=== PATIENT | female | born 1990 | race American Indian/Alaskan Native ===

== ENCOUNTER 2020-10-21 23:36 | Emergency (ER) | payer MEDICAID ==
[2020-10-22] MEDS ORDERED: LIDOCAINE (1%) 10 MG/1 ML VIAL 20 ML MDV INFILTRATI ONE (00:05)
--- NOTE | 2020-10-22 00:55 | Emergency Department Report ---
ED General Adult HPI - General Stated complaint: PAINFUL KNOT IN MIDDLE OF CHEST Time Seen by Provider: 10/22/20 00:04 - History of Present Illness Initial comments: 30 yo AA F pt presents with complaints of painful swelling to left breast today and mid/upper abdominal pain x 2 days. She denies any past medical hx, N/V/D, hematochezia, hematemesism, melena, urinary symptoms, fever/chills/sweats, chest pain, or SOB. She rates her abdominal pain is 6/10 in severity and states it has been coming and going. Abdominal surgical history includes 3 C-sections per patient. She denies constipation or diarrhea. -: Sudden - Related Data Previous Rx's Medication Instructions Recorded Last Taken Type Acetaminophen/Codeine [Tylenol 1 tab PO Q8H PRN #6 tab 10/22/20 Unknown Rx /Codeine # 3 tab] Clindamycin [Clindamycin CAP] 300 mg PO Q6H 10 Days #40 capsule 10/22/20 Unknown Rx Ibuprofen [Motrin 800 MG tab] 800 mg PO Q8HR PRN #21 tablet 10/22/20 Unknown Rx Allergies Allergy/AdvReac Type Severity Reaction Status Date / Time No Known Allergies Allergy Unverified 10/22/20 00:49 ED Review of Systems ROS: Stated complaint: PAINFUL KNOT IN MIDDLE OF CHEST Other details as noted in HPI Constitutional: denies: chills, diaphoresis, fever, malaise, weakness Respiratory: denies: cough, shortness of breath Cardiovascular: denies: chest pain Gastrointestinal: abdominal pain. denies: nausea, vomiting, diarrhea, constipation, hematemesis, melena, hematochezia Genitourinary: denies: urgency, dysuria, frequency, hematuria, discharge, abnormal menses, dyspareunia Skin: denies: change in color Neurological: denies: headache, numbness, paresthesias Hematological/Lymphatic: denies: swollen glands ED Past Medical Hx - Past Medical History Previous Medical History?: Yes Hx Headaches / Migraines: Yes Hx Asthma: Yes - Surgical History Past Surgical History?: Yes Additional Surgical History: Csection x 3 - Medications Home Medications: Home Medications Medication Instructions Recorded Confirmed Last Taken Type Acetaminophen/Codeine [Tylenol 1 tab PO Q8H PRN #6 tab 10/22/20 Unknown Rx /Codeine # 3 tab] Clindamycin [Clindamycin CAP] 300 mg PO Q6H 10 Days #40 capsule 10/22/20 Unknown Rx Ibuprofen [Motrin 800 MG tab] 800 mg PO Q8HR PRN #21 tablet 10/22/20 Unknown Rx ED Physical Exam - General General appearance: alert, in no apparent distress - Head Head exam: Present: atraumatic, normocephalic - Eye Eye exam: Present: normal appearance. Absent: scleral icterus - Neck Neck exam: Present: normal inspection - Respiratory Respiratory exam: Present: normal lung sounds bilaterally. Absent: respiratory distress - Cardiovascular Cardiovascular Exam: Present: regular rate, normal rhythm - GI/Abdominal GI/Abdominal exam: Present: soft, tenderness (Mild periumbilical and), normal bowel sounds. Absent: distended, guarding, rebound, rigid - Extremities Exam Extremities exam: Present: full ROM - Back Exam Back exam: Present: normal inspection. Absent: CVA tenderness (R), CVA tenderness (L) - Neurological Exam Neurological exam: Present: alert, oriented X3, normal gait - Psychiatric Psychiatric exam: Present: normal affect, normal mood - Skin Skin exam: Present: warm, dry, intact, normal color. Absent: rash ED Course Vital Signs 10/21/20 23:54 Temperature 98.6 F Pulse Rate 99 H Respiratory 14 Rate Blood Pressure 118/77 O2 Sat by Pulse 96 Oximetry ED Medical Decision Making - Lab Data Result diagrams: 10/22/20 00:21 10/22/20 00:21 Lab Results 10/22/20 10/22/20 10/22/20 Range/Units 00: 00:21 00:21 WBC 7.0 (4.5-11.0) K/mm3 RBC 4.72 (3.65-5.03) M/mm3 Hgb 12.3 (10.1-14.3) gm/dl Hct 36.8 (30.3-42.9) % MCV 78 L (79-97) fl MCH 26 L (28-32) pg MCHC 34 (30-34) % RDW 15.7 H (13.2-15.2) % Plt Count 205 (140-440) K/mm3 Lymph % (Auto) 28.9 (13.4-35.0) % [place] % (Auto) 8.5 H (0.0-7.3) % Eos % (Auto) 0.0 (0.0-4.3) % Baso % (Auto) 0.1 (0.0-1.8) % Lymph # (Auto) 2.0 (1.2-5.4) K/mm3 [place] # (Auto) 0.6 (0.0-0.8) K/mm3 Eos # (Auto) 0.0 (0.0-0.4) K/mm3 Baso # (Auto) 0.0 (0.0-0.1) K/mm3 Seg Neutrophils % 62.5 (40.0-70.0) % Seg Neutrophils # 4.4 (1.8-7.7) K/mm3 Sodium 139 (137-145) mmol/L Potassium 4.4 (3.6-5.0) mmol/L Chloride 103.3 (98-107) mmol/L Carbon Dioxide 28 (22-30) mmol/L Anion Gap 12 mmol/L BUN 10 (7-17) mg/dL Creatinine 0.6 (0.6-1.2) mg/dL Estimated GFR > 60 ml/min BUN/Creatinine Ratio 17 % Glucose 97 (65-100) mg/dL Calcium 9.1 (8.4-10.2) mg/dL Total Bilirubin < 0.20 (0.1-1.2) mg/dL AST 13 (5-40) units/L ALT 8 (7-56) units/L Alkaline Phosphatase 82 (35-129) units/L Total Protein 7.2 (6.3-8.2) g/dL Albumin 3.8 L (3.9-5) g/dL Albumin/Globulin Ratio 1.1 % Lipase 24 (13-60) units/L HCG, Quant < 2 (0-4) mIU/mL Urine Color (Yellow) Urine Turbidity (Clear) Urine pH (5.0-7.0) Ur Specific [place] (1.003-1.030) Urine Protein (Negative) mg/dL Urine Glucose (UA) (Negative) mg/dL Urine Ketones (Negative) mg/dL Urine Blood (Negative) Urine Nitrite (Negative) Urine Bilirubin (Negative) Urine Urobilinogen (<2.0) mg/dL Ur Leukocyte Esterase (Negative) Urine WBC (Auto) (0.0-6.0) /HPF Urine RBC (Auto) (0.0-6.0) /HPF U Epithel Cells (Auto) (0-13.0) /HPF Urine Mucus /HPF 10/22/20 Range/Units 01:04 WBC (4.5-11.0) K/mm3 RBC (3.65-5.03) M/mm3 Hgb (10.1-14.3) gm/dl Hct (30.3-42.9) % MCV (79-97) fl MCH (28-32) pg MCHC (30-34) % RDW (13.2-15.2) % Plt Count (140-440) K/mm3 Lymph % (Auto) (13.4-35.0) % [place] % (Auto) (0.0-7.3) % Eos % (Auto) (0.0-4.3) % Baso % (Auto) (0.0-1.8) % Lymph # (Auto) (1.2-5.4) K/mm3 [place] # (Auto) (0.0-0.8) K/mm3 Eos # (Auto) (0.0-0.4) K/mm3 Baso # (Auto) (0.0-0.1) K/mm3 Seg Neutrophils % (40.0-70.0) % Seg Neutrophils # (1.8-7.7) K/mm3 Sodium (137-145) mmol/L Potassium (3.6-5.0) mmol/L Chloride (98-107) mmol/L Carbon Dioxide (22-30) mmol/L Anion Gap mmol/L BUN (7-17) mg/dL Creatinine (0.6-1.2) mg/dL Estimated GFR ml/min BUN/Creatinine Ratio % Glucose (65-100) mg/dL Calcium (8.4-10.2) mg/dL Total Bilirubin (0.1-1.2) mg/dL AST (5-40) units/L ALT (7-56) units/L Alkaline Phosphatase (35-129) units/L Total Protein (6.3-8.2) g/dL Albumin (3.9-5) g/dL Albumin/Globulin Ratio % Lipase (13-60) units/L HCG, Quant (0-4) mIU/mL Urine Color Yellow (Yellow) Urine Turbidity Clear (Clear) Urine pH 6.0 (5.0-7.0) Ur Specific [place] 1.020 (1.003-1.030) Urine Protein <15 mg/dl (Negative) mg/dL Urine Glucose (UA) Neg (Negative) mg/dL Urine Ketones Neg (Negative) mg/dL Urine Blood Neg (Negative) Urine Nitrite Neg (Negative) Urine Bilirubin Neg (Negative) Urine Urobilinogen < 2.0 (<2.0) mg/dL Ur Leukocyte Esterase Neg (Negative) Urine WBC (Auto) < 1.0 (0.0-6.0) /HPF Urine RBC (Auto) 1.0 (0.0-6.0) /HPF U Epithel Cells (Auto) 1.0 (0-13.0) /HPF Urine Mucus Few /HPF - Medical Decision Making 30 yo AA F pt presents with complaints of painful swelling to left breast today and mid/upper abdominal pain x 2 days. She denies any past medical hx, N/V/D, hematochezia, hematemesism, melena, urinary symptoms, fever/chills/sweats, chest pain, or SOB. She rates her abdominal pain is 6/10 in severity and states it has been coming and going. Abdominal surgical history includes 3 C-sections per patient. She denies constipation or diarrhea. Minimal periumbilical and epigastric pain noted on exam. No significant abnormalities noted on CBC, CMP, lipase, or UA. Attempted incision and drainage, however patient refused lidocaine and states that she no longer would like an incision and drainage performed. We will try oral antibiotics and warm compresses at home with follow-up with primary care in 3 days. Discussed signs and symptoms that should prompt immediate return to the emergency department in detail with patient who verbalized understanding. She is well-appearing, her vitals are normal, she is stable for discharge home. Patient also follow-up with her primary care doctor within 3 days concerning her abdominal pain. Critical care attestation.: If time is entered above; I have spent that time in minutes in the direct care of this critically ill patient, excluding procedure time. ED Disposition Clinical Impression: Left breast abscess Abdominal pain Qualifiers: Abdominal location: generalized Qualified Code(s): R10.84 - Generalized abdominal pain Disposition: TO HOME OR SELFCARE Is pt being admited?: No Condition: Stable Instructions: Skin Abscess, Abdominal Pain, Adult Prescriptions: Clindamycin [Clindamycin CAP] 300 mg PO Q6H 10 Days #40 capsule Ibuprofen [Motrin 800 MG tab] 800 mg PO Q8HR PRN #21 tablet PRN Reason: Pain, Moderate (4-6) Acetaminophen/Codeine [Tylenol /Codeine # 3 tab] 1 tab PO Q8H PRN #6 tab PRN Reason: Pain , Severe (7-10) Referrals: [facility] [Provider Group] - 3-5 Days
[2020-10-22 01:28] LABS: Basophils % (Auto) 0.1 % (0.0-1.8); Hematocrit 36.8 % (30.3-42.9); Hemoglobin 12.3 gm/dl (10.1-14.3); Lymphocytes % (Auto) 28.9 % (13.4-35.0); Mean Corpuscular HGB Conc 34 % (30-34); Mean Corpuscular Volume 78 fl (79-97); Monocytes # (Auto) 0.6 K/mm3 (0.0-0.8); Monocytes % (Auto) 8.5 % (0.0-7.3); Platelet Count 205 K/mm3 (140-440); Red Blood Count 4.72 M/mm3 (3.65-5.03); Red Cell Distribution Width 15.7 % (13.2-15.2)
[2020-10-22 01:34] LABS: Alanine Aminotransferase 8 units/L (7-56); Albumin 3.8 g/dL (3.9-5); Blood Urea Nitrogen 10 mg/dL (7-17); Calcium 9.1 mg/dL (8.4-10.2); Hemolysis Index 0
[2020-10-22 01:50] LABS: Bilirubin,Urine NEG (Negative); Blood,Urine NEG (Negative); Color,Urine Yellow (Yellow); Mucus,Urine FEW /HPF; Protein,Urine <15 mg/dL mg/dL (Negative); Urobilinogen,Urine < 2.0 mg/dL (<2.0); WBC,Urine < 1.0 /HPF (0.0-6.0)
[2020-10-22 01:51] LABS: BUN/Creatinine Ratio 17
[2020-10-22 03:51] VITALS: BP 128/77
== END 2020-10-22 03:00 | disposition home or self-care (01) ==
LOC: ED 23:36
DX: N61.1 Abscess of the breast and nipple (principal); R10.10 Upper abdominal pain, unspecified; G43.909 Migraine, unspecified, not intractable, without status migrainosus; J45.909 Unspecified asthma, uncomplicated; Z98.890 Other specified postprocedural states; Z79.1 Long term (current) use of non-steroidal anti-inflammatories (NSAID); Z79.2 Long term (current) use of antibiotics; Z79.899 Other long term (current) drug therapy
CPT/HCPCS: 36415; 80053; 81001; 83690; 84702; 85025

== ENCOUNTER 2021-03-19 22:23 | Observation (INO) | payer MEDICAID ==
[2021-03-19 23:59] LABS: Bacteria,Urine 1+ /HPF (Negative); Bilirubin,Urine NEG (Negative); Blood,Urine NEG (Negative); Color,Urine Yellow (Yellow); Protein,Urine <15 mg/dL mg/dL (Negative); RBC,Urine < 1.0 /HPF (0.0-6.0); WBC,Urine < 1.0 /HPF (0.0-6.0)
[2021-03-20 00:13] LABS: Basophils % (Auto) 0.1 % (0.0-1.8); Eosinophils % (Auto) 0.1 % (0.0-4.3); Hematocrit 36.5 % (30.3-42.9); Lymphocytes % (Auto) 26.7 % (13.4-35.0); Mean Corpuscular HGB Conc 33 % (30-34); Mean Corpuscular Volume 77 fl (79-97); Monocytes # (Auto) 0.3 K/mm3 (0.0-0.8); Platelet Count 207 K/mm3 (140-440); Red Blood Count 4.71 M/mm3 (3.65-5.03); Red Cell Distribution Width 15.6 % (13.2-15.2)
[2021-03-20 00:36] LABS: Alanine Aminotransferase 7 units/L (7-56); Blood Urea Nitrogen 15 mg/dL (7-17); Calcium 8.7 mg/dL (8.4-10.2); Hemolysis Index 34
[2021-03-20 00:49] LABS: BUN/Creatinine Ratio 21
[2021-03-20] MEDS ORDERED: MORPHINE 4 MG/1 ML INJ IV ONE (01:58)
[2021-03-20] MEDS ORDERED: ONDANSETRON 4 MG/2 ML INJ IV ONE ×2 (01:58→04:08)
[2021-03-20] MEDS ORDERED: LORazepam 2 MG/ML VIAL IV ONE (03:13)
--- NOTE | 2021-03-20 03:29 | Emergency Department Report ---
ED Abdominal Pain HPI - General Chief Complaint: Abdominal Pain Stated Complaint: RT SIDE ABD PAIN Source: patient Mode of arrival: Ambulatory Limitations: No Limitations - History of Present Illness Initial Comments: Patient is a A0 30-year-old -[place] female with history of migraine headaches and asthma who presents to the ED with complaint of acute onset persistent severe diffuse abdominal pain for the last 2 hours. Patient states that the last meal she ate was 6 hours prior to the onset of the symptoms. Patient described the pain as sharp, crampy and persistent since the onset. Patient denies nausea, vomiting, diarrhea, constipation, chest pain, shortness of breath, dysuria, urinary frequency and urgency, vaginal bleeding, vaginal discharge, fever, chills, cough, sore throat, dyspareunia, dizziness or syncope. MD Complaint: abdominal pain (Diffuse), flank pain (Right flank) -: Sudden, hour(s) (2) Location: diffuse Migration to: no migration Severity scale (0 -10): 9 Quality: cramping, aching, sharp Consistency: constant Improves With: nothing Worsens With: nothing Associated Symptoms: denies other symptoms, anorexia. denies: nausea, vomiting, diarrhea, fever, chills, constipation, dysuria, hematemesis, hematochezia, melena, hematuria, syncope - Related Data LMP Date: 02/20/21 Previous Rx's Medication Instructions Recorded Last Taken Type Acetaminophen/Codeine [Tylenol 1 tab PO Q8H PRN #6 tab 10/22/20 Unknown Rx /Codeine # 3 tab] Clindamycin [Clindamycin CAP] 300 mg PO Q6H 10 Days #40 capsule 10/22/20 Unknown Rx Ibuprofen [Motrin 800 MG tab] 800 mg PO Q8HR PRN #21 tablet 10/22/20 Unknown Rx Allergies Allergy/AdvReac Type Severity Reaction Status Date / Time No Known Allergies Allergy Unverified 10/22/20 00:49 ED Review of Systems ROS: Stated complaint: RT SIDE ABD PAIN Other details as noted in HPI Constitutional: denies: chills, fever Eyes: denies: eye pain, eye discharge, vision change ENT: denies: ear pain, throat pain Respiratory: denies: cough, shortness of breath, wheezing Cardiovascular: denies: chest pain, palpitations Endocrine: no symptoms reported Gastrointestinal: abdominal pain. denies: nausea, vomiting (Diffuse), diarrhea Genitourinary: denies: urgency, dysuria, discharge Musculoskeletal: denies: back pain, joint swelling, arthralgia Skin: denies: rash, lesions Neurological: denies: headache, weakness, paresthesias Psychiatric: denies: anxiety, depression Hematological/Lymphatic: denies: easy bleeding, easy bruising ED Past Medical Hx - Past Medical History Previous Medical History?: Yes Hx Headaches / Migraines: Yes Hx Asthma: Yes - Surgical History Past Surgical History?: Yes Additional Surgical History: Csection x 3 - Social History Smoking Status: Never Smoker Substance Use Type: None - Medications Home Medications: Home Medications Medication Instructions Recorded Confirmed Last Taken Type Acetaminophen/Codeine [Tylenol 1 tab PO Q8H PRN #6 tab 10/22/20 Unknown Rx /Codeine # 3 tab] Clindamycin [Clindamycin CAP] 300 mg PO Q6H 10 Days #40 capsule 10/22/20 Unknown Rx Ibuprofen [Motrin 800 MG tab] 800 mg PO Q8HR PRN #21 tablet 10/22/20 Unknown Rx ED Physical Exam - General Limitations: No Limitations General appearance: alert, in no apparent distress - Head Head exam: Present: atraumatic, normocephalic, normal inspection - Eye Eye exam: Present: normal appearance, PERRL, EOMI Pupils: Present: normal accommodation - ENT ENT exam: Present: normal exam, normal orophraynx, mucous membranes moist, TM's normal bilaterally, normal external ear exam - Neck Neck exam: Present: normal inspection, full ROM - Respiratory Respiratory exam: Present: normal lung sounds bilaterally. Absent: respiratory distress, wheezes, rales, stridor, chest wall tenderness, decreased breath sounds, prolonged expiratory - Cardiovascular Cardiovascular Exam: Present: regular rate, normal rhythm, normal heart sounds. Absent: systolic murmur, diastolic murmur, rubs, gallop - GI/Abdominal GI/Abdominal exam: Present: soft, tenderness (Palpable severe diffuse abdominal tenderness, with guarding), guarding, normal bowel sounds. Absent: rebound, hyperactive bowel sounds, hypoactive bowel sounds, organomegaly, mass, bruit - Extremities Exam Extremities exam: Present: normal inspection, full ROM, normal capillary refill - Back Exam Back exam: Present: normal inspection, full ROM. Absent: tenderness, CVA tenderness (R), CVA tenderness (L), muscle spasm, paraspinal tenderness, vertebral tenderness - Neurological Exam Neurological exam: Present: alert, oriented X3, CN II-XII intact, normal gait, reflexes normal - Psychiatric Psychiatric exam: Present: normal affect, normal mood - Skin Skin exam: Present: warm, dry, intact, normal color. Absent: rash ED Course Vital Signs 03/19/21 23:09 Temperature 98.9 F Pulse Rate 78 Respiratory 20 Rate Blood Pressure 135/89 O2 Sat by Pulse 99 Oximetry - Reevaluation(s) Reevaluation #1: 03/20/21 04:21 I paged and discussed the patient's case with the general surgeon on-call Dr. Rowley who advised that the patient be kept n.p.o., IV antibiotics specifically Zosyn be initiated and that the patient be admitted by the hospitalist physician on-call. Dr. Rowley to evaluate the patient upon admission later this morning. Reevaluation #2: 03/20/21 04:22 I paged and discussed the patient's case with the hospitalist physician on-call Dr. Perez who admitted the patient to the hospital for further evaluation. ED Medical Decision Making - Lab Data Result diagrams: 03/19/21 23:14 03/19/21 23:14 - Radiology Data Radiology results: report reviewed, [place] [address] Cat Scan Report Signed Patient: ROULA CHIN MR#: [id number] : 1990 Acct:[id number] Age/Sex: 30 / F ADM Date: 03/19/21 Loc: ED Attending Dr: Ordering Physician: RHINA HAYS Date of Service: 03/20/21 Procedure(s): CT abdomen pelvis w con Accession Number(s): [id number] cc: RHINA HAYS CT ABDOMEN AND PELVIS WITH IV CONTRAST INDICATION: Pt complains of abdominal pain "Mostly RIGHT sided". COMPARISON: None available. TECHNIQUE: Axial CT images were obtained through the abdomen and pelvis after 100 mL IV contrast. All CT scans at this location are performed using CT dose reduction for ALARA by means of automated exposure control. FINDINGS -- ABDOMEN: Lung Bases: No acute abnormality. Liver: Normal. Gallbladder: Normal. Bile Ducts: Normal. Pancreas: Normal. Spleen: Normal. Adrenals: Normal. Right Kidney and Proximal Ureter: Normal. Left Kidney and Proximal Ureter: Normal. Stomach and Bowel: Normal. Lymph Nodes: No significant adenopathy. Aorta: No significant abnormality. IVC: Normal. Additional Findings: None. FINDINGS -- PELVIS: Urinary Bladder and Distal Ureters: Normal. Reproductive Organs: No acute abnormality. Appendix: Inflammation of the distal appendix. Bowel: No acute abnormality. Free Fluid: None. Lymph Nodes: No significant adenopathy. Additional Findings: None. Skeletal System: No acute abnormality. IMPRESSION: Acute appendicitis. No perforation or abscess. Signer Name: Francisco Javier Brown MD Signed: 03/20/2021 3:54 AM Workstation Name: [id number] Transcribed By: BC Dictated By: Francisco Javier Brown MD Electronically Authenticated By: Francisco Javier Brown MD Signed Date/Time: 03/20/21353 DD/ 0 TD/TT: - Medical Decision Making This is a A0 30-year-old -[place] female with history of migraine headaches and asthma who presents to the ED with complaint of acute onset persistent severe diffuse abdominal pain for the last 2 hours. Patient states that the last meal she ate was 6 hours prior to the onset of the symptoms. Patient described the pain as sharp, crampy and persistent since the onset. In the ED, patient is alert and oriented x3 and is not in any distress with normal vital signs. Patient was treated for pain in the ED and was given antiemetics and normal saline 1 L IV bolus x1. Lab test results were reviewed and are all nonactionable. Abdomen pelvis CT scan with contrast showed acute appendicitis. No perforation or abscess. Blood cultures and lactic acid were ordered. Patient case was discussed with the general surgeon on-call Dr. Rowley who advised the patient be started on IV antibiotics, be kept n.p.o. and that the hospitalist physician on-call Dr. Perez to admit the patient and she shall consult on the patient upon admission. I therefore paged and discussed the patient's case with Dr. Perez the hospitalist physician on-call who admitted the patient to the hospital. - Differential Diagnosis Appendicitis; cholecystitis; kidney stone; UTI; gastroenteritis; Critical Care Time: Yes Critical care attestation.: If time is entered above; I have spent that time in minutes in the direct care of this critically ill patient, excluding procedure time. ED Disposition Clinical Impression: Acute generalized abdominal pain Acute appendicitis Qualifiers: Acute appendicitis type: unspecified acute appendicitis type Qualified Code(s): K35.80 - Unspecified acute appendicitis Disposition: OP ADMIT IP TO THIS HOSP Is pt being admited?: Yes Does the pt Need Aspirin: No Condition: Stable Instructions: Abdominal Pain, Adult, [id number], Appendicitis, Adult, [id number], Abdominal Pain (ED) Referrals: PRIMARY CARE, [Primary Care Provider] - 3-5 Days Time of Disposition: 04:08 Print Language: FAROESE
--- NOTE | 2021-03-20 03:58 | Cat Scan Report ---
CT ABDOMEN AND PELVIS WITH IV CONTRAST INDICATION: Pt complains of abdominal pain "Mostly RIGHT sided". COMPARISON: None available. TECHNIQUE: Axial CT images were obtained through the abdomen and pelvis after 100 mL IV contrast. All CT scans a t this location are performed using CT dose reduction for ALARA by means of automated exposure contro l. FINDINGS -- ABDOMEN: Lung Bases: No acute abnormality. Liver: Normal. Gallbladder: Normal. Bile Ducts: Normal. Pancreas: Normal. Spleen: Normal. Adrenals: Normal. Right Kidney and Proximal Ureter: Normal. Left Kidney and Proximal Ureter: Normal. Stomach and Bowel: Normal. Lymph Nodes: No significant adenopathy. Aorta: No significant abnormality. IVC: Normal. Additional Findings: None. FINDINGS -- PELVIS: Urinary Bladder and Distal Ureters: Normal. Reproductive Organs: No acute abnormality. Appendix: Inflammation of the distal appendix. Bowel: No acute abnormality. Free Fluid: None. Lymph Nodes: No significant adenopathy. Additional Findings: None. Skeletal System: No acute abnormality. IMPRESSION: Acute appendicitis. No perforation or abscess. Signer Name: Francisco Javier Brown MD Signed: 03/20/2021 3:54 AM Workstation Name: [id number]
[2021-03-20] MEDS ORDERED: HYDROmorphone 1 MG/1 ML INJ IV ONE (04:08)
[2021-03-20] MEDS ORDERED: PIPERACIL/TAZOBACTA 4.5/NS 100 4.5 GM/100 ML VIAL IV ONE (04:08)
[2021-03-20] MEDS ORDERED: SODIUM CHLORIDE 0.9% 1000 ML 1,000 ML IV ONE (04:08)
[2021-03-20] MEDS ORDERED: ACETAMINOPHEN 325 MG TAB PO PRN ×2 (04:23→04:55)
[2021-03-20] MEDS ORDERED: ONDANSETRON 4 MG/2 ML INJ IV PRN ×2 (04:23→04:55)
[2021-03-20] MEDS ORDERED: ALBUTEROL 2.5 MG/3 ML NEBU IH PRN (04:55)
[2021-03-20] MEDS ORDERED: MORPHINE 2 MG/1 ML INJ IV PRN (04:55)
[2021-03-20] MEDS ORDERED: D5W/0.45% NACL 1,000 ML IV SCH (05:00)
--- NOTE | 2021-03-20 05:03 | History and Physical Report ---
History of Present Illness Date of examination: 03/20/21 Date of admission: 03/20/21 04:23 Chief complaint: Abdominal pain History of present illness: 30 years old -Citizen Of [place] female with history of asthma, migraine was brought to the emergency room because of acute onset persistent severe diffuse abdominal pain 10/10 for the last 2 hours. Patient states that the last meal she ate was 6 hours prior to the onset of the symptoms. Patient described the pain as sharp, crampy and persistent since the onset. Patient denies nausea, vomiting, diarrhea, constipation, chest pain, shortness of breath, dysuria, urinary frequency and urgency, vaginal bleeding, vaginal discharge, fever, chills, cough, sore throat, dyspareunia, dizziness or syncope. In the emergency room CT scan of the abdomen showed acute appendicitis Past History Past Medical History: other (Asthma migraine) Medications and Allergies Allergies Allergy/AdvReac Type Severity Reaction Status Date / Time No Known Allergies Allergy Unverified 10/22/20 00:49 Home Medications Medication Instructions Recorded Confirmed Last Taken Type Acetaminophen/Codeine [Tylenol 1 tab PO Q8H PRN #6 tab 10/22/20 Unknown Rx /Codeine # 3 tab] Clindamycin [Clindamycin CAP] 300 mg PO Q6H 10 Days #40 capsule 10/22/20 Unknown Rx Ibuprofen [Motrin 800 MG tab] 800 mg PO Q8HR PRN #21 tablet 10/22/20 Unknown Rx Active Meds: Active Medications Acetaminophen (Acetaminophen 325 Mg Tab) 650 mg PO Q4H PRN PRN Reason: Pain MILD(1-3)/Fever >100.5/GRAVES Acetaminophen (Acetaminophen 325 Mg Tab) 650 mg PO Q4H PRN PRN Reason: Pain MILD(1-3)/Fever >100.5/GRAVES Albuterol (Albuterol 2.5 Mg/3 Ml Nebu) 2.5 mg IH Q4HRT PRN PRN Reason: Shortness Of Breath Albuterol/Ipratropium (Ipratropium/Albuterol Sulfate 3 Ml Ampul.Neb) 1 ampul IH Q6HRT [facility] Budesonide (Budesonide 0.5 Mg/2 Ml Nebu) 0.5 mg IH Q12HRT [facility] Famotidine (Famotidine 20 Mg/2 Ml Inj) 20 mg IV BID [facility] Sodium Chloride (Nacl 0.9% 1000 Ml) 1,000 mls @ 999 mls/hr IV BOLUS ONE Stop: 03/20/21 05:08 Last Admin: 03/20/21 04:42 Dose: 999 mls/hr Documented by: Dextrose/Sodium Chloride (D5/0.45ns) 1,000 mls @ 100 mls/hr IV DIRECT [facility] Ceftriaxone Sodium (Rocephin/Ns 2 Gm/100 Ml) 2 gm in 100 mls @ 200 mls/hr IV Q24H [facility]; Protocol Morphine Sulfate (Morphine 2 Mg/1 Ml Inj) 2 mg IV Q4H PRN PRN Reason: Pain, Moderate (4-6) Ondansetron HCl (Ondansetron 4 Mg/2 Ml Inj) 4 mg IV Q8H PRN PRN Reason: Nausea And Vomiting Ondansetron HCl (Ondansetron 4 Mg/2 Ml Inj) 4 mg IV Q8H PRN PRN Reason: Nausea And Vomiting Sodium Chloride (Sodium Chloride 0.9% 10 Ml Flush Syringe) 10 ml IV BID DOU[facility] Sodium Chloride (Sodium Chloride 0.9% 10 Ml Flush Syringe) 10 ml IV PRN PRN PRN Reason: LINE FLUSH Sodium Chloride (Sodium Chloride 0.9% 10 Ml Flush Syringe) 10 ml IV BID [facility] Sodium Chloride (Sodium Chloride 0.9% 10 Ml Flush Syringe) 10 ml IV PRN PRN PRN Reason: LINE FLUSH Review of Systems Gastrointestinal: abdominal pain Exam - Constitutional Vitals: Temp Pulse Resp BP Pulse Ox 98.9 F 78 20 135/89 99 03/19/21 23:09 03/19/21 23:09 03/19/21 23:09 03/19/21 23:09 03/19/21 23:09 General appearance: Present: no acute distress, well-nourished - EENT Eyes: Present: PERRL ENT: hearing intact, clear oral mucosa - Neck Neck: Present: supple, normal ROM - Respiratory Respiratory effort: normal Respiratory: bilateral: diminished - Cardiovascular Heart Sounds: Present: S1 & S2. Absent: rub, click - Extremities Extremities: pulses symmetrical, No edema Peripheral Pulses: within normal limits - Abdominal General gastrointestinal: Present: soft, tender, non-distended, normal bowel sounds Female genitourinary: Present: normal - Integumentary Integumentary: Present: clear, warm, dry - Musculoskeletal Musculoskeletal: gait normal, strength equal bilaterally - Psychiatric Psychiatric: appropriate mood/affect, intact judgment & insight - Neurologic Neurologic: CNII-XII intact, moves all extremities Results - Labs CBC & Chem 7: 03/19/21 23:14 03/19/21 23:14 Labs: Laboratory Last Values WBC 7.5 K/mm3 (4.5-11.0) 03/19/21 23:14 RBC 4.71 M/mm3 (3.65-5.03) 03/19/21 23:14 Hgb 12.0 gm/dl (10.1-14.3) 03/19/21 23:14 Hct 36.5 % (30.3-42.9) 03/19/21 23:14 MCV 77 fl (79-97) L 03/19/21 23:14 MCH 26 pg (28-32) L 03/19/21 23:14 MCHC 33 % (30-34) 03/19/21 23:14 RDW 15.6 % (13.2-15.2) H 03/19/21 23:14 Plt Count 207 K/mm3 (140-440) 03/19/21 23:14 Lymph % (Auto) 26.7 % (13.4-35.0) 03/19/21 23:14 [place] % (Auto) 4.0 % (0.0-7.3) 03/19/21 23:14 Eos % (Auto) 0.1 % (0.0-4.3) 03/19/21 23:14 Baso % (Auto) 0.1 % (0.0-1.8) 03/19/21 23:14 Lymph # (Auto) 2.0 K/mm3 (1.2-5.4) 03/19/21 23:14 [place] # (Auto) 0.3 K/mm3 (0.0-0.8) 03/19/21 23:14 Eos # (Auto) 0.0 K/mm3 (0.0-0.4) 03/19/21 23:14 Baso # (Auto) 0.0 K/mm3 (0.0-0.1) 03/19/21 23:14 Seg Neutrophils % 69.1 % (40.0-70.0) 03/19/21 23:14 Seg Neutrophils # 5.2 K/mm3 (1.8-7.7) 03/19/21 23:14 Sodium 141 mmol/L (137-145) 03/19/21 23:14 Potassium 4.1 mmol/L (3.6-5.0) 03/19/21 23:14 Chloride 105.7 mmol/L (98-107) 03/19/21 23:14 Carbon Dioxide 24 mmol/L (22-30) 03/19/21 23:14 Anion Gap 15 mmol/L 03/19/21 23:14 BUN 15 mg/dL (7-17) 03/19/21 23:14 Creatinine 0.7 mg/dL (0.6-1.2) 03/19/21 23:14 Estimated GFR > 60 ml/min 03/19/21 23:14 BUN/Creatinine Ratio 21 % 03/19/21 23:14 Glucose 80 mg/dL (65-100) 03/19/21 23:14 Calcium 8.7 mg/dL (8.4-10.2) 03/19/21 23:14 Total Bilirubin 0.20 mg/dL (0.1-1.2) 03/19/21 23:14 AST 13 units/L (5-40) 03/19/21 23:14 ALT 7 units/L (7-56) 03/19/21 23:14 Alkaline Phosphatase 73 units/L (35-129) 03/19/21 23:14 Total Protein 7.5 g/dL (6.3-8.2) 03/19/21 23:14 Albumin 4.0 g/dL (3.9-5) 03/19/21 23:14 Albumin/Globulin Ratio 1.1 % 03/19/21 23:14 HCG, Qual Negative (Negative) 03/19/21 23:14 Urine Color Yellow (Yellow) 03/19/21 Unknown Urine Turbidity Clear (Clear) 03/19/21 Unknown Urine pH 7.0 (5.0-7.0) 03/19/21 Unknown Ur Specific [place] 1.023 (1.003-1.030) 03/19/21 Unknown Urine Protein <15 mg/dl mg/dL (Negative) 03/19/21 Unknown Urine Glucose (UA) Neg mg/dL (Negative) 03/19/21 Unknown Urine Ketones Neg mg/dL (Negative) 03/19/21 Unknown Urine Blood Neg (Negative) 03/19/21 Unknown Urine Nitrite Neg (Negative) 03/19/21 Unknown Urine Bilirubin Neg (Negative) 03/19/21 Unknown Urine Urobilinogen 2.0 mg/dL (<2.0) 03/19/21 Unknown Ur Leukocyte Esterase Neg (Negative) 03/19/21 Unknown Urine WBC (Auto) < 1.0 /HPF (0.0-6.0) 03/19/21 Unknown Urine RBC (Auto) < 1.0 /HPF (0.0-6.0) 03/19/21 Unknown U Epithel Cells (Auto) 2.0 /HPF (0-13.0) 03/19/21 Unknown Urine Bacteria (Auto) 1+ /HPF (Negative) 03/19/21 Unknown - Imaging and Cardiology CT scan - abdomen: report reviewed Assessment and Plan VTE prophylaxis?: Mechanical Plan of care discussed with patient/family: Yes - Patient Problems (1) Acute appendicitis Current Visit: Yes Status: Acute Qualifiers: Acute appendicitis type: unspecified acute appendicitis type Qualified Code(s): K35.80 - Unspecified acute appendicitis Plan to address problem: Admit to medical floor. N.p.o. D5 half-normal saline at the rate of 100 cc/h. Pepcid 20 mg IV every 12 hours. Rocephin 2 g IV daily. Will consult surgery for evaluation and possible appendectomy (2) Acute generalized abdominal pain Current Visit: Yes Status: Acute Plan to address problem: N.p.o. D5 half-normal saline at the rate of 100 cc/h. Morphine 2 mg IV every 4 hours as needed. Rocephin 2 g IV daily. Will consult surgery for evaluation and possible appendectomy (3) Migraine Current Visit: Yes Status: Acute Plan to address problem: Stable. Tylenol 650 mg p.o. every 6 hours as needed. Morphine 2 mg IV every 4 hours as needed (4) DVT prophylaxis Current Visit: Yes Status: Acute Plan to address problem: SCD for DVT prophylaxis. Pepcid 20 mg IV every 12 hours for GI prophylaxis. Patient is a full code
[2021-03-20] MEDS: IPRATROPIUM/ALBUTEROL SULFATE 3 ML AMPUL.NEB IH SCH ×3 (07:55→22:13)
[2021-03-20] MEDS: BUDESONIDE 0.5 MG/2 ML NEBU IH SCH ×2 (07:59→22:13)
--- NOTE | 2021-03-20 08:45 | Anesthesia Consultation ---
Anesthesia Consult and Med Hx Date of service: 03/20/21 - Airway Anesthetic Teeth Evaluation: Good ROM Head & Neck: Adequate Mental/Hyoid Distance: Adequate Mallampati Class: Class II Intubation Access Assessment: Probably Good - Pulmonary Exam CTA: Yes - Pre-Operative Health Status ASA Pre-Surgery Classification: ASA2 Proposed Anesthetic Plan: General - Pulmonary Hx Smoking: No Hx Asthma: Yes SOB: No Hx Sleep Apnea: No - Cardiovascular System Hx Hypertension: No Hx Angina: No Hx Valvular Heart Disease: No Hx Heart Murmur: No - Central Nervous System Hx Psychiatric Problems: Yes (Migraine Headaches) - Gastrointestinal Hx Ulcer: No Hx Gastroesophageal Reflux Disease: No - Endocrine Hx Renal Disease: No Hx Liver Disease: No Hx Insulin Dependent Diabetes: No Hx Non-Insulin Dependent Diabetes: No Hx Thyroid Disease: No - Hematic Hx Anemia: No Hx Sickle Cell Disease: No - Other Systems Hx Alcohol Use: No Hx Obesity: No - Additional Comments Anesthesia Medical History Comments: Patient denied previous anesthesia complications.
--- NOTE | 2021-03-20 08:47 | Anesthesia Day of Surgery ---
Anesthesia Day of Surgery - Day of Surgery Patient Examined: Yes Patient H&P Reviewed: Yes Patient is NPO: Yes Beta Blockers: No Cardiac Clearance: No Pulmonary Clearance: No Baudilio's Test: N/A
--- NOTE | 2021-03-20 09:32 | Consultation ---
History of Present Illness Consult date: 03/20/21 Reason for consult: abdominal pain Chief complaint: ABD PAIN - History of present illness History of present illness: 30-year-old female with past medical history of asthma who presents to the emergency room with acute onset right-sided abdominal pain which started in the right upper abdomen and then radiated down to the right lower quadrant and pelvic area. She has never had pain like this in the past. She states it is sharp, started suddenly and increased in severity, remained constant and this is what brought her to the emergency room. No alleviating or exacerbating factors. This is not associated with food. No fevers or chills. No nausea or vomiting. No chest pain or shortness of breath. Past History Past Medical History: other (Asthma, migraine) Past Surgical History: (X3) Social history: no significant social history Family history: diabetes (Father) Medications and Allergies Allergies Allergy/AdvReac Type Severity Reaction Status Date / Time No Known Allergies Allergy Unverified 10/22/20 00:49 Home Medications Medication Instructions Recorded Confirmed Last Taken Type Acetaminophen/Codeine [Tylenol 1 tab PO Q8H PRN #6 tab 10/22/20 Unknown Rx /Codeine # 3 tab] Clindamycin [Clindamycin CAP] 300 mg PO Q6H 10 Days #40 capsule 10/22/20 Unknown Rx Ibuprofen [Motrin 800 MG tab] 800 mg PO Q8HR PRN #21 tablet 10/22/20 Unknown Rx Active Meds: Active Medications Acetaminophen (Acetaminophen 325 Mg Tab) 650 mg PO Q4H PRN PRN Reason: Pain MILD(1-3)/Fever >100.5/GRAVES Albuterol (Albuterol 2.5 Mg/3 Ml Nebu) 2.5 mg IH Q4HRT PRN PRN Reason: Shortness Of Breath Albuterol/Ipratropium (Ipratropium/Albuterol Sulfate 3 Ml Ampul.Neb) 1 ampul IH Q6HRT [facility] Last Admin: 03/20/21 07:55 Dose: 1 ampul Documented by: Budesonide (Budesonide 0.5 Mg/2 Ml Nebu) 0.5 mg IH Q12HRT [facility] Last Admin: 03/20/21 07:59 Dose: 0.5 mg Documented by: Famotidine (Famotidine 20 Mg/2 Ml Inj) 20 mg IV BID [facility] Last Admin: 03/20/21 09:07 Dose: 20 mg Documented by: Dextrose/Sodium Chloride (D5/0.45ns) 1,000 mls @ 100 mls/hr IV DIRECT [facility] Last Admin: 03/20/21 09:19 Dose: 100 mls/hr Documented by: Ceftriaxone Sodium (Rocephin/Ns 2 Gm/100 Ml) 2 gm in 100 mls @ 200 mls/hr IV Q24H [facility]; Protocol Morphine Sulfate (Morphine 2 Mg/1 Ml Inj) 2 mg IV Q4H PRN PRN Reason: Pain, Moderate (4-6) Ondansetron HCl (Ondansetron 4 Mg/2 Ml Inj) 4 mg IV Q8H PRN PRN Reason: Nausea And Vomiting Sodium Chloride (Sodium Chloride 0.9% 10 Ml Flush Syringe) 10 ml IV BID [facility] Last Admin: 03/20/21 09:11 Dose: 10 ml Documented by: Sodium Chloride (Sodium Chloride 0.9% 10 Ml Flush Syringe) 10 ml IV PRN PRN PRN Reason: LINE FLUSH Review of Systems All systems: negative (10 point ROS performed and negative except for that listed in HPI) Exam Vital Signs Temp Pulse Resp BP Pulse Ox 98.9 F 78 20 135/89 99 03/19/21 23:09 03/19/21 23:09 03/19/21 23:09 03/19/21 23:09 03/19/21 23:09 Narrative exam: Gen.: Awake, alert, oriented x3. No apparent distress ENT: Trachea midline. No lymphadenopathy. No scleral icterus or conjunctival pallor CV: S1, S2 present Respiratory: No audible wheezes Abdomen: Soft, nondistended, tenderness to palpation in the right upper quadrant right lower quadrant suprapubic area. Positive voluntary guarding. No rebound or rigidity. Extremities: No clubbing, cyanosis, edema Results - Labs 03/19/21 23:14 03/19/21 23:14 Abnormal lab results 03/19/21 Range/Units 23:14 MCV 77 L (79-97) fl MCH 26 L (28-32) pg RDW 15.6 H (13.2-15.2) % Diabetes panel 03/19/21 Range/Units 23:14 Sodium 141 (137-145) mmol/L Potassium 4.1 (3.6-5.0) mmol/L Chloride 105.7 (98-107) mmol/L Carbon Dioxide 24 (22-30) mmol/L BUN 15 (7-17) mg/dL Creatinine 0.7 (0.6-1.2) mg/dL Glucose 80 (65-100) mg/dL Calcium 8.7 (8.4-10.2) mg/dL AST 13 (5-40) units/L ALT 7 (7-56) units/L Alkaline Phosphatase 73 (35-129) units/L Total Protein 7.5 (6.3-8.2) g/dL Albumin 4.0 (3.9-5) g/dL Calcium panel 03/19/21 Range/Units 23:14 Calcium 8.7 (8.4-10.2) mg/dL Albumin 4.0 (3.9-5) g/dL Pituitary panel 03/19/21 Range/Units 23:14 Sodium 141 (137-145) mmol/L Potassium 4.1 (3.6-5.0) mmol/L Chloride 105.7 (98-107) mmol/L Carbon Dioxide 24 (22-30) mmol/L BUN 15 (7-17) mg/dL Creatinine 0.7 (0.6-1.2) mg/dL Glucose 80 (65-100) mg/dL Calcium 8.7 (8.4-10.2) mg/dL Adrenal panel 03/19/21 Range/Units 23:14 Sodium 141 (137-145) mmol/L Potassium 4.1 (3.6-5.0) mmol/L Chloride 105.7 (98-107) mmol/L Carbon Dioxide 24 (22-30) mmol/L BUN 15 (7-17) mg/dL Creatinine 0.7 (0.6-1.2) mg/dL Glucose 80 (65-100) mg/dL Calcium 8.7 (8.4-10.2) mg/dL Total Bilirubin 0.20 (0.1-1.2) mg/dL AST 13 (5-40) units/L ALT 7 (7-56) units/L Alkaline Phosphatase 73 (35-129) units/L Total Protein 7.5 (6.3-8.2) g/dL Albumin 4.0 (3.9-5) g/dL - Imaging CT scan - abdomen: report reviewed, image reviewed CT scan - pelvis: report reviewed, image reviewed Assessment and Plan 30-year-old female with acute appendicitis Plan: 1. NPO 2. IVF 3. IV abx 4. prn pain and nausea control 5. DVT ppx 6. Recommend appendectomy. I discussed the CT scan findings with the patient. I discussed the procedure for appendectomy, all risks, benefits, alternatives of surgery. All questions were answered and patient is agreeable to proceed. Consent obtained. Patient added to the OR for today. 7. Likely DC this afternoon after surgery if tolerates a diet and pain is controlled Thank you for this consultation. Please call with any questions or concerns. Evaluation and treatment of this patient was during the time of the national and state emergency arising from COVID19 coronavirus pandemic. Treatment and procedures performed meet the current and available best practice and guidelines for patient during the COVID pandemic.
[2021-03-20] MEDS ORDERED: FAMOTIDINE 20 MG/2 ML INJ IV SCH (10:00)
[2021-03-20] MEDS ORDERED: HYDROmorphone 1 MG/1 ML INJ ONE ×2 (11:39→14:18)
[2021-03-20] MEDS ORDERED: LIDOCAINE MPF (2%) 20 MG/1 ML VIAL 5 ML ONE (11:39)
[2021-03-20] MEDS ORDERED: SUCCINYLCHOLINE CHLORIDE 200 MG/10 ML INJ MDV ONE (11:39)
[2021-03-20] MEDS ORDERED: ROCURONIUM 50 MG/5 ML INJ IV ONE (11:39)
[2021-03-20] MEDS ORDERED: propofoL 200 MG/20 ML VIAL IV ONE (11:40)
[2021-03-20] MEDS ORDERED: cefTRIAXone/NS 2 GM/100 ML 2 GM/100 ML BAG IV SCH (12:00)
[2021-03-20] MEDS ORDERED: BUPIVACAINE/PF (0.5%) 5 MG/1 ML 30 ML VIAL INFILTRATI ONE ×2 (13:09→13:19)
[2021-03-20] MEDS ORDERED: LIDOCAINE (1%) 10 MG/1 ML VIAL 20 ML MDV ONE (13:09)
[2021-03-20] MEDS ORDERED: WATER FOR IRRIG STERILE 1,000 ML BOTTLE IR ONE (13:19)
[2021-03-20] MEDS ORDERED: LIDOCAINE (1%) 10 MG/1 ML VIAL 20 ML MDV INFILTRATI ONE (13:19)
[2021-03-20] MEDS ORDERED: NEOSTIGMINE 10MG/10 ML INJ MDV ONE (13:26)
[2021-03-20] MEDS ORDERED: ONDANSETRON 4 MG/2 ML INJ ONE (13:27)
[2021-03-20] MEDS ORDERED: dexAMETHasone 20 MG/5 ML VIAL ONE (13:27)
[2021-03-20] MEDS ORDERED: GLYCOPYRROLATE 0.4 MG/2 ML INJ ONE (13:27)
[2021-03-20] MEDS ORDERED: LACTATED RINGERS 1,000 ML ONE (13:34)
[2021-03-20] MEDS ORDERED: HYDROcodone/ACETAMINOPHEN 5-325 MG TAB PO PRN (13:39)
--- NOTE | 2021-03-20 13:45 | Operative Report ---
Operative Report Operative Report: Date of operation: 03/20/2021 Preoperative diagnosis: acute appendicitis Postoperative diagnosis: acute gangrenous appendicitis Procedure performed: Laparoscopic appendectomy Surgeon: Mariana Rowley DO Anesthesia: GETA Findings: Dilatation and inflammation of the distal appendix EBL:<10cc Specimen: appendix Disposition/Condition: stable to PACU HPI and indication: 30-year-old female presented to ER with RLQ pain x24 hours. She was found to have an acute appendicitis on CT scan and physical exam findings consistent with this. It was recommended that the patient undergo appendectomy. All risks, benefits, alternatives to surgery were discussed with the patient, all questions answered, and consent signed. Procedure in detail: Patient was identified in the preop area and taken back to the OR and placed on the OR table in supine position. After anesthesia was induced a kelly catheter was steriley placed by the circulating nurse and the left arm was tucked. All bony prominences were padded appropriately. The abdomen was prepped and draped in the usual sterile fashion.. A time out was performed. A supraumbilical incision was made using an 11 blade and a veress needle was inserted through this incision. The positioning of the veress needle was confirmed using the saline drop test. The abdomen was then insufflated to 15mmHg without incident. The veress needle was withdrawn and a 5mm Optiview trocar was placed through the incision. The abdomen was inspected and no underlying injury to the abdominal structures was identified. There were adhesions from the omentum to the anterior abdominal wall in the midline lower abdomen. A left lower quadrant 12 mm trocar was placed under direct visualization. The adhesions were lysed using harmonic scalpel. This allowed for placement of a 5mm suprapubic trocar which was placed under direct visualization. The patient was placed in Trendelenburg and tilted to the left. The small bowel was retracted out of the right lower quadrant and the appendix was visualized. The cecum was located in the right upper quadrant with the appendix traversing from the right upper quadrant to the right lower quadrant and pelvis. There was mild dilatation of the distal appendix with inflammation. There were adhesions from the lateral part of the appendix to the right lower quadrant. These adhesions were lysed using the harmonic scalpel. The mesoappendix was ligated using the harmonic scalpel and the dissection was taken down to the base of the appendix. The base was clearly visualized and appeared unremarkable. The appendix was transected at the base using a [place] flex 45 mm white load stapler. It was placed into an Endo Catch bag and removed via the 12 mm port. This was passed off the table as specimen. The staple line and mesentery were then inspected and no bleeding visualized. The patient was placed in neutral position. The 12 mm port fascia was closed using an 0 Vicryl interrupted stitch with the Moises Armenta device. The remaining ports removed under direct visualization. All skin incisions were closed using 4-0 monocryl subcuticular stitches and skin glue.Local anesthetic was infilitrated into all skin incision sites. At the end of the case, all sponge, instrument, sharp counts were correct x2. The patient was awoken from anesthesia, kelly catheter removed, and she was taken to PACU in stable condition.
[2021-03-20] MEDS: HYDROmorphone 1 MG/1 ML INJ IV PRN ×3 (14:20→14:40)
[2021-03-20] MEDS ORDERED: HYDROmorphone 1 MG/1 ML INJ IV PRN (15:00)
--- NOTE | 2021-03-20 15:04 | Discharge Summary ---
Providers - Providers Date of Admission: 03/20/21 04:23 Date of discharge: 03/20/21 Attending physician: DAVID KIM 03/20/21 04:18 Consult to Physician [CONS] Stat Comment: RHINA Guerrero spoke with Dr. Diaz @ 0417 Consulting Provider: DESMOND DIAZ Physician Instructions: Keep NPO; IV Abx; Hospitalist to admit Reason For Exam: acute appendicitis Primary care physician: [facility] Hospitalization Reason for admission: Right lower quadrant pain/acute appendicitis Condition: Stable Pertinent studies: CT abdomen and pelvis Procedures: Preoperative diagnosis: acute appendicitis Postoperative diagnosis: acute gangrenous appendicitis Procedure performed: Laparoscopic appendectomy Hospital course: Abdominal pain History of present illness: 30 years old -[place] female with history of asthma, migraine was brought to the emergency room because of acute onset persistent severe diffuse abdominal pain 10/10 for the last 2 hours. Patient states that the last meal she ate was 6 hours prior to the onset of the symptoms. Patient described the pain as sharp, crampy and persistent since the onset. Patient denies nausea, vomiting, diarrhea, constipation, chest pain, shortness of breath, dysuria, urinary frequency and urgency, vaginal bleeding, vaginal discharge, fever, chills, cough, sore throat, dyspareunia, dizziness or syncope. In the emergency room CT scan of the abdomen showed acute appendicitis Patient was admitted to the hospital managed with IV antibiotics IV fluids n.p.o. status, subsequently evaluated by surgeon, and immediately patient underwent lap appendectomy. Patient tolerated the procedure well, started on regular diet per surgery Patient tolerated the food, ambulatory, no new complaints vital signs reviewed stable cleared by surgeon for discharge and follow-up in the office. Patient is stable at discharge. Discharge diagnosis; --Acute appendicitis Empiric antibiotics IV fluids surgery evaluated Had lap appendectomy today -- s/p lap appendectomy Follow postop instructions Pain medications, follow-up visit with surgeon. --Acute generalized abdominal pain Due to acute appendicitis , status post surgery Symptoms resolved , supportive care --Migraine headache Stable.Tylenol 650 mg p.o. every 6 hours as needed. --Obesity ; BMI 30.6 Advised weight reduction when medically stable Diet modification, exercise as tolerated and weight reduction when stable --DVT prophylaxis Cleared by surgeon for discharge if tolerated the diet Discharge around 6 PM today if she tolerates food and is stable. Stable at discharge Disposition: - TO HOME OR SELFCARE Final Discharge Diagnosis (Prints w/discharge instructions): Acute appendicitis. s/p lap appendectomy. Abdominal pain/resolved. Migraine headache. Obesity BMI 30.6 Time spent for discharge: 35 min Core Measure Documentation - Palliative Care Palliative Care/ Comfort Measures: Not Applicable - Core Measures Any of the following diagnoses?: none Exam - Constitutional Vitals: Temp Pulse Resp BP Pulse Ox 97.4 F L 84 12 121/82 99 03/20/21 14:50 03/20/21 14:50 03/20/21 14:50 03/20/21 14:50 03/20/21 14:50 General appearance: Present: no acute distress, well-nourished - EENT Eyes: Present: PERRL, EOM intact - Neck Neck: Present: supple, normal ROM - Respiratory Respiratory effort: normal Respiratory: bilateral: diminished, negative: rales, rhonchi, wheezing - Cardiovascular Rhythm: regular Heart Sounds: Present: S1 & S2 - Extremities Extremities: no ischemia, No edema - Abdominal General gastrointestinal: Present: soft, non-tender, non-distended, normal bowel sounds - Integumentary Integumentary: Present: warm, dry - Musculoskeletal Musculoskeletal: strength equal bilaterally, generalized weakness - Psychiatric Psychiatric: appropriate mood/affect, cooperative - Neurologic Neurologic: CNII-XII intact, moves all extremities Plan Activity: advance as tolerated Diet: regular Additional Instructions: Follow primary care physician within 1 week, follow-up private surgeon in 2 weeks. Advised to follow postoperative instructions given to you by the surgeon and the discharging nurse. If you have worsening symptoms contact MD or go to emergency room. Advised diet modification, advised exercise as tolerated and weight reduction. When medically stable Follow up with: DESMOND DIAZ DO [Staff Physician] - 14 Days PRIMARY CARE, [Primary Care Provider] - 3-5 Days Prescriptions: HYDROcodone/APAP 5-325 [[place] 5-325 mg TAB] 1 each PO Q6H PRN #20 tablet PRN Reason: Pain , Severe (7-10)
[2021-03-20 15:36] VITALS: BP 129/79
--- NOTE | 2021-03-20 15:37 | Post Anesthesia Evaluation ---
- Post Anesthesia Evaluation Patient Participated: Yes Airway Patent: Yes Stable Respiratory Function: Yes Nausea/Vomiting: No Temp > 96.8F: Yes Pain Manageable: Yes Adequeate Hydration: Yes Anesthesia Complications: No Block Receding Appropriately: Not Applicable Patient on Ventilator: No
== END 2021-03-20 17:00 | disposition home or self-care (01) ==
LOC: ED 22:23 → 3A 03-20 04:23 → INTOOBSV 03-20 04:23 → 4A 03-20 05:20
PROVIDERS: ADMIT Hospitalist; ATTEND Internal Medicine
DX: K35.80 Unspecified acute appendicitis (principal); R10.84 Generalized abdominal pain; G43.909 Migraine, unspecified, not intractable, without status migrainosus; J45.909 Unspecified asthma, uncomplicated
CPT/HCPCS: 36415; 44970; 74177; 80053; 81001; 82140; 84703; 85025; 87040; 88304; 94640; 96361; 96365; 96367; 96375; 96376; 99291; G0378; J0330; J0696; J1100; J1170; J2060; J2270; J2405; J2543; J2704; J2710; J7030; J7120; Q9967; J7070